=== PATIENT | male | born 1945 | race African-American/Black ===

== ENCOUNTER 2025-04-29 14:14 | Emergency (ER) | payer OTHER ==
[~2025-04-29] VITALS: Ht 172.7 cm; Wt 99.0 kg
[2025-04-29 14:15] VITALS: O2SAT 99
[2025-04-29] MEDS: CLONIDINE 0.1MG TABLET PO ONE (15:08)
[2025-04-29 15:17] LABS: BASOPHILS % 0.9 % (0.0-2.0); EOSINOPHILS % 2.3 % (0.0-5.0); HEMATOCRIT. 39.7 % (42.0-52.0); HEMOGLOBIN. 12.8 g/dL (14.0-18.0); LYMPHOCYTES % 27.0 % (20.0-50.0); MEAN PLATELET VOLUME 8.2 fl (7.4-10.4); MONOCYTES % 8.5 % (2.0-8.0); NEUTROPHILS % 61.3 % (40.0-76.0); PLATELET 223 x1000/uL (130-400); RED BLOOD CELL COUNT 4.31 mill/uL (4.7-6.1); RED CELL DISTRIBUTION WIDTH 12.1 % (11.6-14.6)
[2025-04-29 15:32] LABS: CREATININE 1.1 mg/dL (0.6-1.3); UREA NITROGEN BLOOD 13 mg/dL (9-23)
[2025-04-29 15:34] LABS: ASPARTATE AMINOTRANSFERASE 20 IU/L (<34); BILIRUBIN DIRECT 0.3 mg/dL (<=3.0)
[2025-04-29 15:35] LABS: BILIRUBIN TOTAL 1.1 mg/dL (0.1-1.0); PROTEIN TOTAL 7.0 g/dL (6.0-8.3)
[2025-04-29 15:50] LABS: CLARITY URINE TURBID (CLEAR); GLUCOSE URINE NEGATIVE (NEGATIVE); KETONES URINE NEGATIVE (NEGATIVE); LEUKOCYTE ESTERASE URINE NEGATIVE (NEGATIVE); NITRITE URINE NEGATIVE (NEGATIVE); OCCULT BLOOD URINE NEGATIVE (NEGATIVE); PH URINE 8.0 (4.5-8.0); PROTEIN URINE NEGATIVE (NEGATIVE); SPECIFIC GRAVITY URINE 1.013 (1.005-1.030); UROBILINOGEN URINE 0.2 E.U./dL (0.2-1.0)
[2025-04-29 16:07] LABS: COLOR URINE PALE YELLOW (YELLOW)
[2025-04-29 16:10] LABS: AMORPHOUS SEDIMENT URINE 2+ /lpf; BACTERIA URINE NONE SEEN; RBC URINE NONE SEEN /hpf (0-2); SQUAMOUS EPITHELIAL CELL URINE NONE SEEN /lpf (RARE/1+); WBC URINE NONE SEEN /hpf (0-2)
[2025-04-29] MEDS: ATROPINE SULFATE 1MG/ML VIAL IV ONE (19:32)
[2025-04-29] MEDS: HYDRALAZINE 20MG/ML VIAL IV ONE (22:33)
[2025-04-29 22:54] VITALS: BP 190/89; PULSE 81; RESP 16; TEMP 36.7; O2SAT 99
[2025-04-29] MEDS ORDERED: IOHEXOL-300 100 ML BOTTLE ONE (23:12)
== END 2025-04-29 22:52 | disposition short-term general hospital (02) ==
LOC: ER 15:25
DX: R00.1 Bradycardia, unspecified (principal); K59.00 Constipation, unspecified; I10 Essential (primary) hypertension; Z86.73 Personal history of transient ischemic attack (TIA), and cerebral infarction without residual deficits
CPT/HCPCS: 99291; 74177; 96374; 96375; 80076; 80048; 81003; 83690; 85025; 36415; 93005; Q9967; J0461; J0360